=== PATIENT | female | born 1970 | race Caucasian/White ===

== ENCOUNTER → 2016-05-05 | Emergency (ER) | payer OTHER, MEDICARE | END | disposition disaster alternative care site (69) | LOC: GAMB 14:16 | DX: G40.909 Epilepsy, unspecified, not intractable, without status epilepticus (principal); R56.9 Unspecified convulsions; R40.20 Unspecified coma ==

== ENCOUNTER → 2016-06-12 | Emergency (ER) | payer OTHER, MEDICARE | END | disposition disaster alternative care site (69) | LOC: GAMB 16:13 | DX: R56.9 Unspecified convulsions (principal); F41.9 Anxiety disorder, unspecified; R45.83 Excessive crying of child, adolescent or adult ==